=== PATIENT | female | born 1960 | race Caucasian/White ===

== ENCOUNTER 2025-07-11 11:31 | Emergency (ER) | payer MEDICARE, MEDICAID, SELFPAY ==
[2025-07-11 11:32] VITALS: BMI 28.5
[2025-07-11 11:43] VITALS: BP 108/72; PULSE 68; RESP 18; TEMP 36.9; O2SAT 93
--- NOTE | 2025-07-11 11:54 | XR_ITS ---
EXAMINATION: Left knee 4 views TECHNIQUE: AP oblique lateral axial left knee 4 views Date and time: July 11, 2025, 12:30 p.m. INDICATIONS: Ground-level fall 2 days ago with injury of the knee, knee pain. FINDINGS: Severe osteopenia Advanced narrowing medial joint space Moderate knee effusion No fracture or patellar dislocation IMPRESSION: No acute fracture Recommend continued follow-up as clinically warranted, given the severe osteopenia
--- NOTE | 2025-07-11 12:01 | PD.EDLOWEX ---
Lower Extremity Injury RME/HPI General Chief Complaint: Extremity Injury, Lower Stated Complaint: L KNEE INJURY Time Seen by Provider: 07/11/25 11:44 Arrival date/time: 07/11/25 11:31 RME / HPI RME / HPI Narrative: 65-year-old female with a past medical history of DM, HTN, mild hypoxia (pt states her O2 sats are typically low, upon review of hospital record during her stay here in August of 2022 her sats were noted to go down to 91 and pt had to be placed on nasal canula additionally she states she was told its due to her sleep apnea) osteoarthritis in her major joints presents to the ER complaining of acute on chronic left knee pain after twisting her knee yesterday and now is having increased pain and swelling. Denies fever, nausea, vomiting, numbness, tingling, CP, SOB, weakness. Related Data Home Medications ?Medication ?Instructions ?Recorded ?Confirmed atorvastatin 20 mg tablet 20 mg PO QDAY 05/23/19 12/01/22 metformin 1,000 mg tablet 1,000 mg PO BID 05/23/19 12/01/22 sitagliptin phosphate 100 mg 100 mg PO DAILY 05/23/19 12/01/22 tablet (Januvia) pioglitazone 45 mg tablet 45 mg PO QDAY 11/19/20 12/01/22 lisinopril 20 1 tab PO DAILY 09/20/22 12/01/22 mg-hydrochlorothiazide 12.5 mg tablet cholecalciferol (vitamin D3) 1,250 See Rx Instructions .Route .COMPLEX 09/22/22 12/01/22 mcg (50,000 unit) capsule Previous Rx's ?Medication ?Instructions ?Recorded diclofenac sodium 1 % topical gel 4 g topical QID #50 grams 07/11/25 (Voltaren Arthritis Pain) Allergies Allergy/AdvReac Type Severity Reaction Status Date / Time codeine Allergy Intermediate Rash Verified 07/18/23 09:43 morphine Allergy Intermediate Redness of Verified 07/18/23 09:43 Skin ED Exam Narrative Physical exam: Constitutional: Vital Signs Reviewed. Well appearing. No acute distress. Not toxic appearing. Head: Normocephalic, atraumatic. Eyes: Conjunctiva clear. ENT: Mucous membranes moist. Neck: Trachea midline. Normal range of motion. No nuchal rigidity. Respiratory: Normal effort. No respiratory distress or accessory muscle use. Neuro: Alert and oriented. Speech normal. No focal gross motor or sensory deficits observed. Skin: Warm, dry, normal color. Extremity: Left knee with mild effusion. No erythema, heat, ecchymosis, crepitus. Patient has painless mid range of motion from 90 to 20 degrees however beyond this patient does begin to experience some pain. Positive tenderness to palpation medial joint line and medial aspect of knee with mild edema. No calf tenderness or edema. Compartments remain soft. Posterior tibialis pulses 2+ regular rate and rhythm. Psych: Pleasant. Normal affect. Cooperative. Course Quality Measures none Orders Category Date Time Status XR knee comp LT 4V Stat Exams 07/11/25 11:54 Completed HYDROcodone*/APAP 5/325 [[place] 5/325] Med 07/11/25 11:54 Discontinued 1 tab PO X1 ONE Reevaluation(s) Reevaluation #1: At the time of reassessment, the patient remains alert and oriented ?3 with GCS 15. Vitals are normal, pain is controlled, and the patient is tolerating oral intake without nausea or vomiting. The patient is agreeable to discharge and verbalizes understanding of the diagnosis, studies, treatment plan, medications (including side effects/precautions), and strict ER return precautions as discussed in the ED. All concerns were addressed, and the patient is comfortable with the plan. Vital Signs Vital signs: Vital Signs Temperature 98.5 F 07/11/25 11:43 Pulse Rate 68 07/11/25 11:43 Respiratory Rate 18 07/11/25 11:43 Blood Pressure 108/72 07/11/25 11:43 Pulse Oximetry (%) 93 L 07/11/25 11:43 Oxygen Delivery Method Room Air 07/11/25 11:43 Extremity Injury, Lower MDM Narrative MDM Narrative:: Concern for internal knee derangement resulting in effusion from sprain versus strain versus occult fracture or dislocation No infectious etiology and low suspicion for septic arthritis given lack of circumferential erythema, heat, irritable joint as patient has a fairly good mid range motion but is painless Lower extremity remains distally vastly intact with soft compartments X-ray without gross fracture or bony malalignment however she does have an effusion and severe osteopenia Plan for RICE therapy, cane versus walker which she has access to at home, pain and nausea management as needed, follow-up with PMD and orthopedics in 1 to 2 days, strict ER return precautions advised Patient data External records reviewed:: [facility] [place] previous records Clinical information provided by:: patient Social determinants that could affect healthcare access:: none Patient has the following chronic illnesses:: As noted How is presenting disease/condition affected by chronic disease/condition?: no chronic disease Evaluation data The following diagnostics were reviewed and interpreted by me:: other (specify) Lab and/or radiology exams considered but not ordered:: Additional Labs and radiology considered, but not ordered as they were not clinically indicated at this time. Interpretation Summary: As noted Medications / Prescriptions Medications or Prescriptions considered but not ordered:: I considered prescription management (both outpatient prescriptions AND drug treatment in the ER) and decided that this was necessary and was prescribed as charted. Medication administrations:: Medication Administration History Discontinued Medications Hydrocodone Bitart/Acetaminophen (Hydrocodone/Apap 5/325 Tablet) 1 tab PO X1 ONE Stop: 07/11/25 11:55 Last Admin: 07/11/25 12:02 Dose: 1 tab Documented By: OA As noted Consultations Consultation(s) initiated? (list below): No Diagnosis Most likely diagnosis given after review of the tests above:: As noted Admission Indicated Admission indicated?: not indicated Admission Request Was there a request for admission?: No Disposition Plan Disposition Plan: Discharge Discharge Attestation Discharge Attestation: The patient and all family members were given an opportunity to ask questions and understood the discharge instructions. Discharge instructions specifically effects, indications for sooner follow up or return to the emergency department, and the expected course of current diagnosis. Patient condition: Stable Discharge Plan Plan Patient Disposition: HOME (Self Care) Patient condition on transfer: Stable Prescriptions/Referrals Prescriptions/Med Rec: New diclofenac sodium [Voltaren Arthritis Pain] 1 % gel 4 g topical QID Qty: 50 0RF Rx Instructions: apply to single knee No Action atorvastatin 20 mg Tablet 20 mg PO QDAY metformin 1,000 mg Tablet 1,000 mg PO BID Januvia 100 mg Tablet 100 mg PO DAILY pioglitazone 45 mg Tablet 45 mg PO QDAY lisinopril-hydrochlorothiazide 20-12.5 mg tablet 1 tab PO DAILY Patient Comments: TAKE 1 TABLET BY MOUTH ONCE DAILY cholecalciferol (vitamin D3) 1,250 mcg (50,000 unit) capsule See Rx Instructions .ROUTE .COMPLEX Patient Comments: TAKE 1 CAPSULE BY MOUTH ONCE A WEEK FOR 90 DAYS Rx Instructions: 1,250 mcg orally Referrals: Jamaica Lala MD [Primary Care Provider, Internal Medicine] - In 1 week Problem List Clinical Impression: Acute knee pain Patient/Caregiver Discharge Instructions Discharge Activity: walk with walker only Education Materials: ED Knee Effusion Additional Instructions: Follow up with your primary medical doctor and orthopedic doctor within 24 hours. Return to the Emergency Room immediately for any new, worsening, continuing symptoms or any concerns at all. Return to the Emergency Room within 24 hours if you are unable to follow up with your primary medical doctor and orthopedic doctor within 24 hours. Print Language: Belarusian Stand Alone Forms: Angella Award Info., Patient Portal Info Letter PA/MOISTURE TESTER Supervising Physician PA/MOISTURE TESTER Supervising Physician: Dr. Isaac
[2025-07-11] MEDS: HYDROcodone/APAP 5/325 TABLET 1 TAB PO (12:02)
[2025-07-11 12:54] VITALS: PULSE 91; O2SAT 97
== END 2025-07-11 14:39 | disposition home or self-care (01) ==
PROVIDERS: Emergency Provider Physician Assistant; PCP Student in an Organized Health Care Education/Training Program
DX: S89.92XA Unspecified injury of left lower leg, initial encounter (principal); X50.1XXA Overexertion from prolonged static or awkward postures, initial encounter; E11.9 Type 2 diabetes mellitus without complications; G47.30 Sleep apnea, unspecified; I10 Essential (primary) hypertension; M17.12 Unilateral primary osteoarthritis, left knee; Z79.84 Long term (current) use of oral hypoglycemic drugs
CPT/HCPCS: 73564; 99283; A9270